=== PATIENT | male | born 2000 | race Caucasian/White ===

== ENCOUNTER 2019-07-29 14:58 | Emergency (ER) | payer MEDICAID ==
[~2019-07-29] VITALS: Ht 172.7 cm; Wt 90.9 kg
[2019-07-29] MEDS ORDERED: IBUP-1986 PO (19:33)
[2019-07-29] MEDS ORDERED: ORPH100T2 PO (19:33)
[2019-07-29] MEDS ORDERED: HYDR-4353 PO (19:33)
[2019-07-29] MEDS ORDERED: orphenadrine citrate 60mg/2ml inj. IM ONE (19:35)
[2019-07-29] MEDS ORDERED: ketorolac trometh inj. 60 MG/2 ML VIAL IM ONE (19:35)
[2019-07-29 19:46] VITALS: BP 116/64
== END 2019-07-29 19:47 | disposition home or self-care (01) ==
LOC: ER 15:01
DX: S13.4XXA Sprain of ligaments of cervical spine, initial encounter (principal); S39.012A Strain of muscle, fascia and tendon of lower back, initial encounter; F12.90 Cannabis use, unspecified, uncomplicated; F11.90 Opioid use, unspecified, uncomplicated; F15.90 Other stimulant use, unspecified, uncomplicated; Z88.0 Allergy status to penicillin; Z88.2 Allergy status to sulfonamides; Z88.1 Allergy status to other antibiotic agents; Z72.0 Tobacco use; V48.6XXA Car passenger injured in noncollision transport accident in traffic accident, initial encounter; Y93.89 Activity, other specified; Y92.488 Other paved roadways as the place of occurrence of the external cause; Y99.8 Other external cause status
CPT/HCPCS: 96372; 99283; J1885; J2360